=== PATIENT | male | born 1970 ===

== ENCOUNTER → 2024-04-18 | Outpatient (CLI) | payer OTHER ==
[~2024-04-18] MED LIST: CELEXA40 MG PO; CINNAMON500 MG PO; COZAAR 50MG50 MG/TAB PO; CRANBERRY EXTR250 MG PO; D3-5050000 IU PO; ENBREL50 MG/1 ML SQ; ENBREL50 MG/ML SC; EPA FISH OIL1000 MG PO; Iohexol 300 - 10 ML VIAL IV ONE; NIACIN250 M2 PO; PRAVACHOL 20MG20 MG PO; Triamcinolone 40 MG/ML 1 ML VIAL IJ ONE; VENTOLIN0.09 MG IH; VITAMIN E 400 U4001 PO; VITAMIN E1000 U/CAP PO; ZITHROMAX Z PA250 MG PO
== END ==
LOC: COL.RAD 07:48
DX: M25.561 Pain in right knee (principal); M25.562 Pain in left knee
CPT/HCPCS: J0665; J3301; Q9967

== ENCOUNTER → 2024-07-20 | Outpatient (CLI) | payer OTHER | LOC: COL.RAD 09:22 | DX: M25.551 Pain in right hip (principal); M25.552 Pain in left hip | CPT/HCPCS: J0665; J3301; Q9967 ==